=== PATIENT | female | born 1995 | race Two or more races ===

== ENCOUNTER 2018-05-21 09:17 | Outpatient (CLI) | payer MEDICAID ==
--- NOTE | 2018-05-25 10:06 | Ultrasound Report ---
Reason: TEST POSITIVE Procedure Date: 05/21/2018 Accession Number: [id number] / [id number] Procedure: US - OB 14+ Weeks CPT Code: FULL RESULT: EXAM: LIMITED OBSTETRICAL ULTRASOUND EARLY SECOND TRIMESTER EXAM DATE: 05/21/2018 11:00 AM. CLINICAL HISTORY: test positive. COMPARISON: None. TECHNIQUE: Real-time sonographic evaluation of the fetus performed by the billing clerk. Multiple claims representative static images were saved for review. DATING: EGA 16 weeks 1 day with CLAUDETTE 11/04/2018 based on LMP of 01/28/2018. EGA 16 weeks 4 days with CLAUDETTE 11/01/2018 based on the current ultrasound. GENERAL EVALUATION Luz . Cardiac activity: 161 bpm. movement: Visualized. Presentation: Cephalic. Placenta: Posterior position. No evidence for previa. Amniotic fluid: DARLINE 9.0. MVP 3.0 cm. BIOMETRY Bi-Parietal Diameter (BPD): 3.5 cm, 16 weeks 5 days Head Circumference (HC): 13.2 cm, 16 weeks 5 days Abdominal Circumference (AC): 11.0 cm, 16 weeks 6 days Femur Length (FL): 2.1 cm, 16 weeks 2 days Estimated Weight: 165 g, 79th percentile for 16 weeks 1 days. ANATOMY Not evaluated. MATERNAL STRUCTURES Uterus: Unremarkable. Cervix: Long and closed. Right ovary/adnexa: Unremarkable. Left ovary/adnexa: Unremarkable. Free fluid: None. IMPRESSION: 1. Luz live intrauterine with gestational age 16 weeks 1 day based on LMP 2. size is within expected limits for assigned dating. RADIA
== END 2018-05-21 09:18 | disposition home or self-care (01) ==
LOC: DI 09:17
PROVIDERS: ATTEND Registered Nurse
DX: Z34.90 Encounter for supervision of normal pregnancy, unspecified, unspecified trimester (principal)
CPT/HCPCS: 76805

== ENCOUNTER 2018-06-01 14:34 | Outpatient (CLI) | payer MEDICAID ==
[2018-06-01 15:05] LABS: MUDS CUTOFF CONCENTRATIONS CUTOFF CONC BELOW:
[2018-06-01 15:32] LABS: AMPHETAMINE SCREEN,URINE NEGATIVE (NEGATIVE); BENZODIAZEPINES SCREEN, URINE NEGATIVE (NEGATIVE); COCAINE SCREEN URINE NEGATIVE (NEGATIVE); METHADONE SCREEN, URINE NEGATIVE (NEGATIVE); METHAMPHETAMINES SCREEN, URINE NEGATIVE (NEGATIVE); OPIATE SCREEN, URINE NEGATIVE (NEGATIVE); OXYCODONE SCREEN, URINE NEGATIVE (NEGATIVE); PROPOXYPHENE SCREEN, URINE NEGATIVE (NEGATIVE); TRICYCLIC ANTIDEPRESSANT,URINE NEGATIVE (NEGATIVE)
== END 2018-06-01 23:59 | disposition home or self-care (01) ==
LOC: LAB.R 14:34
PROVIDERS: ATTEND Obstetrics & Gynecology
DX: Z33.1 Pregnant state, incidental (principal)
CPT/HCPCS: 80306

== ENCOUNTER 2018-06-05 09:47 | Outpatient (CLI) | payer MEDICAID ==
[2018-06-05 10:28] LABS: BILIRUBIN,URINE NEGATIVE (NEGATIVE); GLUCOSE, URINE (UA) NEGATIVE (NEGATIVE); KETONES,URINE (UA) NEGATIVE (NEGATIVE); LEUKOCYTE ESTERASE, URINE MODERATE (NEGATIVE); NITRITE,URINE NEGATIVE (NEGATIVE); OCCULT BLOOD,URINE NEGATIVE (NEGATIVE); PH,URINE 6.5 PH (5.0-7.5); PROTEIN,URINE NEGATIVE (NEGATIVE); UROBILINOGEN,URINE 0.2 (NORMAL) E.U./dL (NORMAL)
[2018-06-05 10:37] LABS: BASOPHILS # (AUTO) 0.1 10^3/uL (0.0-0.1); BASOPHILS % (AUTO) 0.9 %; EOSINOPHILS # (AUTO) 0.1 10^3/uL (0.0-0.7); EOSINOPHILS % (AUTO) 1.2 %; HGB - HEMOGLOBIN 12.4 g/dL (12.0-16.0); LYMPHOCYTES # (AUTO) 2.3 10^3/uL (1.5-3.5); MEAN CORPUSCULAR HEMOGLOBIN 29.2 pg (27.0-31.0); MEAN CORPUSCULAR HGB CONC 34.8 g/dL (32.0-36.0); MEAN PLATELET VOLUME 8.1 fL (7.9-10.8); MONOCYTES # (AUTO) 0.4 10^3/uL (0.0-1.0); MONOCYTES % (AUTO) 4.7 %; NEUTROPHILS # (AUTO) 5.4 10^3/uL (1.5-6.6); NEUTROPHILS % (AUTO) 65.2 %; PLT - PLATELET COUNT 237 10^3/uL (130-450); RED BLOOD COUNT 4.24 10^6/uL (4.20-5.40); RED CELL DISTRIBUTION WIDTH 13.2 % (12.0-15.0); WHITE BLOOD COUNT 8.3 x10^3/uL (4.8-10.8)
[2018-06-05 10:43] LABS: CLARITY,URINE CLOUDY (CLEAR)
[2018-06-05 10:47] LABS: BACTERIA,URINE Few /HPF (None Seen); RBC,URINE None Seen /HPF (0-5); SQUAMOUS EPITHELIAL CELL,UR MANY Squamous (<= Few)
[2018-06-07 14:16] LABS: HEPATITIS B SURFACE ANTIGEN NON-REACTIVE (NON-REACTIVE); HEPATITIS C ANTIBODY NON-REACTIVE (NON-REACTIVE)
[2018-06-07 14:17] LABS: HIV AG/AB 4TH GEN NON-REACTIVE (NON-REACTIVE)
== END 2018-06-05 09:48 | disposition home or self-care (01) ==
LOC: LAB 09:47
PROVIDERS: ATTEND Obstetrics & Gynecology
DX: Z33.1 Pregnant state, incidental (principal)
CPT/HCPCS: 36415; 81001; 81599; 82105; 82677; 84702; 85025; 86336; 86592; 86762; 86803; 86850; 86900; 86901; 87086; 87340; 87389

== ENCOUNTER 2018-06-26 15:02 | Emergency (ER) | payer MEDICAID ==
[2018-06-26 15:49] VITALS: BP 96/71
[2018-06-26] MEDS ORDERED: ACETAMINOPHEN 500 MG TABLET PO STA (16:19)
[2018-06-26] MEDS ORDERED: LIDOCAINE VISCOUS 2% 15 ML UDC MM STA (16:43)
[2018-06-26] MEDS ORDERED: MAG HYDROX/AL HYDROX/SIMETH 30 ML UDC PO STA (16:43)
--- NOTE | 2018-06-26 16:45 | ED Physician Documentation ---
PD HPI ABD PAIN - Stated complaint Stated Complaint: 22WK PREG/SOA/SIDE PX - History obtained from History obtained from: Patient (using [employer] on call pharmacy technician tablet) - History of Present Illness Timing - onset: Today (She developed epigastric pain radiating to both flanks this morning at 7 AM. There was no injury, no nausea or vomiting or changes in bowel movements. She is never had this before. The pain has decreased her appetite. She is 22 weeks without cramping, bleeding, or fluid loss. She has had some sore throat and body aches and chills as well without measured fevers.) Review of Systems Constitutional: reports: Chills, Myalgias. denies: Fever Nose: denies: Rhinorrhea / runny nose Throat: reports: Sore throat Respiratory: denies: Dyspnea, Cough GI: reports: Abdominal Pain. denies: Nausea, Vomiting, Diarrhea : denies: Dysuria, Frequency, Hesitancy PD PAST MEDICAL HISTORY - Past Surgical History Past Surgical History: No - Present Medications Home Medications: Ambulatory Orders Medication Instructions Recorded Confirmed Famotidine [Pepcid] 20 mg PO BID #60 tablet 06/26/18 Penicillin V Potassium 500 mg PO Q6HR #40 tablet 06/26/18 - Allergies Allergies/Adverse Reactions: Allergies Allergy/AdvReac Type Severity Reaction Status Date / Time No Known Drug Allergies Allergy Verified 11/05/13 23:23 - Social History Does the pt smoke?: No Smoking Status: Never smoker - Immunizations Immunizations are current?: No Immunizations: TDAP >10years/unknown PD ED PE NORMAL - Vitals Vital signs reviewed: Yes - General General: Alert and oriented X 3, No acute distress - HEENT HEENT: PERRL, EOMI, Pharynx benign - Neck Neck: Supple, no meningeal sign, No bony TTP - Cardiac Cardiac: RRR, No murmur - Respiratory Respiratory: No respiratory distress, Clear bilaterally - Abdomen Abdomen: Normal bowel sounds, Soft, Non tender, Other (Bedside ultrasound demonstrates single live intrauterine with a heart rate 165) - Back Back: No CVA TTP, No spinal TTP - Derm Derm: Normal color, Warm and dry - Extremities Extremities: No edema, No calf tenderness / cord - Neuro Neuro: Alert and oriented X 3, Normal speech Results - Vitals Vitals: Vital Signs - 24 hr 06/26/18 15:43 Temperature 37.0 C Heart Rate 90 Respiratory 18 Rate Blood Pressure 96/71 O2 Saturation 99 Oxygen O2 Source Room air - Labs Labs: Laboratory Tests 06/26/18 06/26/18 06/26/18 16:45 16:45 16:53 WBC 11.4 H RBC 4.13 L Hgb 12.0 Hct 34.9 L MCV 84.4 MCH 29.1 MCHC 34.5 RDW 12.6 Plt Count 216 MPV 8.4 Neut # (Auto) 9.8 H Lymph # (Auto) 1.1 L Stan[place] # (Auto) 0.5 Eos # (Auto) 0.0 Baso # (Auto) 0.0 Absolute Nucleated RBC 0.00 Nucleated RBC % 0.0 Sodium Potassium Chloride Carbon Dioxide Anion Gap BUN Creatinine Estimated GFR (MDRD) Glucose Calcium Total Bilirubin AST ALT Alkaline Phosphatase Total Protein Albumin Globulin Albumin/Globulin Ratio Lipase Urine Color YELLOW Urine Clarity CLEAR Urine pH 6.0 Ur Specific [place] 1.025 Urine Protein NEGATIVE Urine Glucose (UA) NEGATIVE Urine Ketones >=80 H Urine Occult Blood SMALL H Urine Nitrite NEGATIVE Urine Bilirubin NEGATIVE Urine Urobilinogen 0.2 (NORMAL) Ur Leukocyte Esterase NEGATIVE Urine RBC 6-10 H Urine WBC 0-3 Ur Squamous Epith Cells MANY Squamous H Urine Bacteria Many H Urine Mucus Few Strands Ur Microscopic Review INDICATED Urine Culture Comments NOT INDICATED Influenza A (Rapid) Influenza B (Rapid) Group A Strep Rapid POSITIVE H 06/26/18 06/26/18 16:53 16:53 WBC RBC Hgb Hct MCV MCH MCHC RDW Plt Count MPV Neut # (Auto) Lymph # (Auto) [place] # (Auto) Eos # (Auto) Baso # (Auto) Absolute Nucleated RBC Nucleated RBC % Sodium 135 Potassium 3.2 L Chloride 104 Carbon Dioxide 22 Anion Gap 9.0 BUN 5 L Creatinine 0.4 Estimated GFR (MDRD) 201 Glucose 91 Calcium 8.8 Total Bilirubin 0.5 AST 17 ALT 12 Alkaline Phosphatase 94 Total Protein 7.0 Albumin 3.6 Globulin 3.4 Albumin/Globulin Ratio 1.1 Lipase 19 L Urine Color Urine Clarity Urine pH Ur Specific [place] Urine Protein Urine Glucose (UA) Urine Ketones Urine Occult Blood Urine Nitrite Urine Bilirubin Urine Urobilinogen Ur Leukocyte Esterase Urine RBC Urine WBC Ur Squamous Epith Cells Urine Bacteria Urine Mucus Ur Microscopic Review Urine Culture Comments Influenza A (Rapid) Negative Influenza B (Rapid) Negative Group A Strep Rapid PD MEDICAL DECISION MAKING - ED course ED course: 22-year-old woman at 22 weeks with epigastric and flank pain as well as chills and throat pain. She did have some relief with a GI cocktail suggesting an element of gastritis but is also found to have strep throat which is treated with penicillin. At subsequent encounters all questions were answered with the aid of the on call pharmacy technician tablet. Departure - Departure Disposition: 01 Home, Self Care Clinical Impression: Strep throat Gastritis Qualifiers: Gastritis type: superficial Chronicity: acute Gastritis bleeding: without bleeding Qualified Code(s): K29.00 - Acute gastritis without bleeding Instructions: ED Strep Pharyngitis Conf, ED Gastritis Follow-Up: [facility] [Provider Group] - Within 1 week Prescriptions: Penicillin V Potassium 500 mg PO Q6HR #40 tablet Famotidine [Pepcid] 20 mg PO BID #60 tablet Print Language: Guatemalan
[2018-06-26 17:05] LABS: BILIRUBIN,URINE NEGATIVE (NEGATIVE); GLUCOSE, URINE (UA) NEGATIVE (NEGATIVE); KETONES,URINE (UA) >=80 mg/dL (NEGATIVE); LEUKOCYTE ESTERASE, URINE NEGATIVE (NEGATIVE); NITRITE,URINE NEGATIVE (NEGATIVE); OCCULT BLOOD,URINE SMALL (NEGATIVE); PROTEIN,URINE NEGATIVE (NEGATIVE); UROBILINOGEN,URINE 0.2 (NORMAL) E.U./dL (NORMAL)
[2018-06-26 17:07] LABS: CLARITY,URINE CLEAR (CLEAR)
[2018-06-26 17:10] LABS: BASOPHILS % (AUTO) 0.1 %; EOSINOPHILS % (AUTO) 0.1 %; LYMPHOCYTES # (AUTO) 1.1 10^3/uL (1.5-3.5); LYMPHOCYTES % (AUTO) 9.7 %; MEAN CORPUSCULAR HEMOGLOBIN 29.1 pg (27.0-31.0); MEAN CORPUSCULAR HGB CONC 34.5 g/dL (32.0-36.0); MEAN CORPUSCULAR VOLUME 84.4 fL (81.0-99.0); MEAN PLATELET VOLUME 8.4 fL (7.9-10.8); MONOCYTES # (AUTO) 0.5 10^3/uL (0.0-1.0); MONOCYTES % (AUTO) 4.3 %; NEUTROPHILS # (AUTO) 9.8 10^3/uL (1.5-6.6); NEUTROPHILS % (AUTO) 85.8 %; PLT - PLATELET COUNT 216 10^3/uL (130-450); RED BLOOD COUNT 4.13 10^6/uL (4.20-5.40); RED CELL DISTRIBUTION WIDTH 12.6 % (12.0-15.0); WHITE BLOOD COUNT 11.4 x10^3/uL (4.8-10.8)
[2018-06-26 17:11] LABS: ALBUMIN 3.6 g/dL (3.2-5.5); ALBUMIN/GLOBULIN RATIO 1.1 (1.0-2.2); BILIRUBIN,TOTAL 0.5 mg/dL (0.2-1.0); CALCIUM 8.8 mg/dL (8.5-10.3); CREATININE 0.4 mg/dL (0.4-1.0)
[2018-06-26 17:15] LABS: BACTERIA,URINE Many /HPF (None Seen); MUCUS,URINE Few Strands; SQUAMOUS EPITHELIAL CELL,UR MANY Squamous (<= Few)
[2018-06-26] MEDS ORDERED: PENICILLIN VK 250 MG TABLET PO STA (17:21)
== END 2018-06-26 18:00 | disposition home or self-care (01) ==
LOC: ED 15:02
DX: O99.89 Other specified diseases and conditions complicating pregnancy, childbirth and the puerperium (principal); J02.0 Streptococcal pharyngitis; B95.5 Unspecified streptococcus as the cause of diseases classified elsewhere; K29.70 Gastritis, unspecified, without bleeding; Z3A.22 22 weeks gestation of pregnancy
CPT/HCPCS: 36415; 80053; 81001; 83690; 85025; 87275; 87276; 87430; 99283; A9270; 81003; 87086

== ENCOUNTER 2018-08-03 13:19 | Outpatient (CLI) | payer MEDICAID ==
--- NOTE | 2018-08-03 19:03 | Ultrasound Report ---
Reason: Procedure Date: 08/03/2018 Accession Number: [id number] / [id number] Procedure: US - OB Detailed Eval CPT Code: FULL RESULT: EXAM: COMPLETE OBSTETRICAL ULTRASOUND EXAM DATE: 08/03/2018 03:36 PM. CLINICAL HISTORY: anatomic survey. LMP 01/28/2018 COMPARISON: 05/21/2018 TECHNIQUE: Real-time sonographic evaluation of the fetus performed by the dependency director. Multiple patient admitting representative static images were saved for review. DATING: Established EGA 26 weeks 5 days with CLAUDETTE 11/04/2018 based on LMP. EGA 27 weeks 1 day with CLAUDETTE 11/01/2018 based on prior ultrasound. EGA 28 weeks 0 days with CLAUDETTE 10/26/2018 based on the current ultrasound. GENERAL EVALUATION Luz . Cardiac activity: 142 bpm. movement: Present. Presentation: Cephalic. Placenta: Posterior position. No evidence for previa. Umbilical cord: 3 vessel cord. Central placental cord origin. Amniotic fluid: Subjectively normal. MVP 4.8 cm. BIOMETRY Bi-Parietal Diameter (BPD): 7.2 cm, 28 weeks 5 days Head Circumference (HC): 26.4 cm, 28 weeks 5 days Abdominal Circumference (AC): 23.6 cm, 27 weeks 6 days Femur Length (FL): 5 cm, 26 weeks 6 days Estimated Weight: 1114 g, 77th percentile . ANATOMY The intracranial structures, profile, face/nose/lips, spine, 4 chamber heart and outflow tracts, stomach, abdominal wall and cord insertion, diaphragm, kidneys, bladder, and extremities were visualized and demonstrate no abnormality. MATERNAL STRUCTURES Uterus: Unremarkable. Cervix: Long and closed. Transabdominal length 4 cm. Right ovary/adnexa: Unremarkable. Left ovary/adnexa: Unremarkable. Free fluid: None. IMPRESSION: 1. Luz intrauterine with gestational age 26 weeks 5 days based on LMP. 2. Estimated weight is within expected limits for assigned dating. 3. Normal anatomic survey. No anatomic abnormalities are detected at this time. RADIA
== END 2018-08-03 13:20 | disposition home or self-care (01) ==
LOC: DI 13:19
PROVIDERS: ATTEND Obstetrics & Gynecology
DX: Z36.89 Encounter for other specified antenatal screening (principal)
CPT/HCPCS: 76811

== ENCOUNTER 2018-08-09 11:05 | Outpatient (CLI) | payer MEDICAID ==
[2018-08-09 13:01] LABS: HGB - HEMOGLOBIN 11.8 g/dL (12.0-16.0); MEAN CORPUSCULAR HEMOGLOBIN 27.5 pg (27.0-31.0); MEAN CORPUSCULAR HGB CONC 33.7 g/dL (32.0-36.0); MEAN CORPUSCULAR VOLUME 81.6 fL (81.0-99.0); MEAN PLATELET VOLUME 8.4 fL (7.9-10.8); RED BLOOD COUNT 4.31 10^6/uL (4.20-5.40); RED CELL DISTRIBUTION WIDTH 12.6 % (12.0-15.0); WHITE BLOOD COUNT 7.9 x10^3/uL (4.8-10.8)
== END 2018-08-09 11:06 | disposition home or self-care (01) ==
LOC: LAB 11:05
PROVIDERS: ATTEND Obstetrics & Gynecology
DX: Z34.82 Encounter for supervision of other normal pregnancy, second trimester (principal); Z36.8A Encounter for antenatal screening for other genetic defects
CPT/HCPCS: 36415; 81220; 81243; 81329; 81599; 82950; 83021; 85014; 85018; 85027; 85041; 86787; 86850

== ENCOUNTER 2018-10-01 09:22 | Outpatient (CLI) | payer MEDICAID ==
--- NOTE | 2018-10-01 14:59 | Ultrasound Report ---
Reason: SUPERVISION OF OTHER NORMAL ,SECOND TRIME Procedure Date: 10/01/2018 Accession Number: [id number] / [id number] Procedure: US - OB F/U or Repeat CPT Code: FULL RESULT: EXAM: FOLLOW-UP OBSTETRICAL ULTRASOUND EXAM DATE: 10/01/2018 10:00 AM. CLINICAL HISTORY: Supervision of otherwise normal , second trimester. Follow-up of growth. COMPARISON: OB DETAILED EVAL 08/03/2018 2:02 PM. TECHNIQUE: Real-time sonographic evaluation of the fetus performed by the steeler. Multiple patient access representative static images were saved for review. DATING: Established EGA 35 weeks 1 day with CLAUDETTE 11/04/2018 based on LMP. EGA 36 weeks 1 day with CLAUDETTE 10/28/2018 based on the current ultrasound. GENERAL EVALUATION Luz . Cardiac activity: 145 bpm. movement: Visualized. Presentation: Vertex Placenta: Posterior position. Amniotic fluid: Normal. DARLINE 14 cm. MVP 3.7 cm. BIOMETRY Bi-Parietal Diameter (BPD): 9.0 cm, 36 weeks 4 days Head Circumference (HC): 33.3 cm, 38 weeks 0 days Abdominal Circumference (AC): 32.8 cm, 36 weeks 5 days Femur Length (FL): 6.5 cm, 33 weeks 3 days Estimated Weight: 2832 g, 73rd percentile for 35 weeks 1 day. MATERNAL STRUCTURES Nonspecific finding of prominent bilateral adnexal vasculature is incidentally noted, unclear clinical significance. IMPRESSION: 1. Luz live intrauterine with gestational age 35 weeks 1 day based on LMP. 2. Estimated weight is within expected limits for assigned dating. 3. Normal interval growth compared to 08/03/2018. RADIA
== END 2018-10-01 09:23 | disposition home or self-care (01) ==
LOC: DI 09:22
PROVIDERS: ATTEND Obstetrics & Gynecology
DX: Z34.83 Encounter for supervision of other normal pregnancy, third trimester (principal)
CPT/HCPCS: 76816

== ENCOUNTER 2018-10-12 08:00 | Outpatient (CLI) | payer MEDICAID ==
[2018-10-12 22:15] LABS: TRICHOMONAS VAGINALIS DNA NEGATIVE (NEGATIVE)
== END 2018-10-12 23:59 | disposition home or self-care (01) ==
LOC: LAB.R 08:00
PROVIDERS: ATTEND Nurse Practitioner Obstetrics & Gynecology
DX: Z36.85 Encounter for antenatal screening for Streptococcus B (principal); Z11.3 Encounter for screening for infections with a predominantly sexual mode of transmission
CPT/HCPCS: 87491; 87591; 87661; 87797

== ENCOUNTER 2018-10-23 18:38 | Outpatient (CLI) | payer MEDICAID ==
[2018-10-23 19:10] VITALS: BP 116/59
--- NOTE | 2018-10-26 10:54 | PROVIDER PROGRESS NOTE ---
- HPI Chief Complaint: Labor Check Current : Current EDU 11/04/18 Gestation 38 Weeks and 2 Days 4 Para 3 Vital Signs Temperature 37.2 C 10/23/18 18:49 Heart Rate 81 10/23/18 18:49 Respiratory Rate 16 10/23/18 18:49 Blood Pressure 116/59 L 10/23/18 18:49 O2 Saturation 100 10/23/18 18:49 Temperature 37.2 C 10/23/18 18:49 Heart Rate 81 10/23/18 18:49 Respiratory Rate 16 10/23/18 18:49 Blood Pressure 116/59 L 10/23/18 18:49 O2 Saturation 100 10/23/18 18:49 - Exam SVE 2-3/50/-2, vertex, BOW intact - Procedures Service Date of procedure: 10/23/18 Findings: SVE unchanged after 2 hours. - Plan Plan: Patient released home with precautions. FINAL DIAGNOSIS: Early labor @ >37.0wks gestation
== END 2018-10-23 23:00 | disposition home or self-care (01) ==
LOC: WFO 18:38 → FBP 18:44 → WFO 23:00
PROVIDERS: ATTEND Nurse Practitioner Obstetrics & Gynecology
DX: Z34.83 Encounter for supervision of other normal pregnancy, third trimester (principal)
CPT/HCPCS: 99213

== ENCOUNTER 2018-10-24 01:16 | Inpatient (IN) | payer MEDICAID ==
[2018-10-24] MEDS ORDERED: SODIUM CHLORIDE FLUSH 0.9% 10 ML SYRINGE IVP PRN (01:30)
[2018-10-24] MEDS ORDERED: LACTATED RINGERS 1,000 ML IV SCH (01:30)
[2018-10-24] MEDS ORDERED: fentaNYL 100 MCG/2 ML VIAL IVP PRN (01:30)
[2018-10-24] MEDS ORDERED: LACTATED RINGERS 1,000 ML IV ONE (01:43)
[2018-10-24] MEDS ORDERED: OXYTOCIN/DEXTROSE 5 % 30 UNIT/500 ML BAG IV ONE (01:43)
[2018-10-24 02:03] LABS: BASOPHILS % (AUTO) 0.3 %; EOSINOPHILS # (AUTO) 0.1 10^3/uL (0.0-0.7); EOSINOPHILS % (AUTO) 0.7 %; HGB - HEMOGLOBIN 10.4 g/dL (12.0-16.0); LYMPHOCYTES # (AUTO) 2.9 10^3/uL (1.5-3.5); LYMPHOCYTES % (AUTO) 41.3 %; MEAN CORPUSCULAR HEMOGLOBIN 24.1 pg (27.0-31.0); MEAN CORPUSCULAR HGB CONC 31.3 g/dL (32.0-36.0); MEAN CORPUSCULAR VOLUME 76.9 fL (81.0-99.0); MEAN PLATELET VOLUME 11.4 fL (7.9-10.8); MONOCYTES # (AUTO) 0.6 10^3/uL (0.0-1.0); MONOCYTES % (AUTO) 8.2 %; NEUTROPHILS # (AUTO) 3.5 10^3/uL (1.5-6.6); NEUTROPHILS % (AUTO) 49.2 %; PLT - PLATELET COUNT 198 10^3/uL (130-450); RED BLOOD COUNT 4.32 10^6/uL (4.20-5.40); RED CELL DISTRIBUTION WIDTH 13.3 % (12.0-15.0)
[2018-10-24] MEDS ORDERED: HYDROCORTISONE 1% CREAM 28 GM TUBE PR PRN (02:39)
[2018-10-24] MEDS ORDERED: WITCH HAZEL/GLYCERIN 1 PAD TOP PRN (02:39)
[2018-10-24] MEDS ORDERED: OXYTOCIN/DEXTROSE 5 % 30 UNIT/500 ML BAG IV PRN (02:40)
--- NOTE | 2018-10-24 02:53 | DELIVERY NOTE ---
Delivery Note - Labor Labor: positive: Spontaneous - Delivery Method Delivery Method: positive: Spontaneous vaginal delivery - Presentation Presentation: positive: Vertex, LEONARD - left occiput anterior - Nuchal Cord Nuchal Cord: positive: None - Amniotic Fluid Description Amniotic Fluid Description: positive: Clear - Episiotomy Type Episiotomy Type: positive: None - Laceration Laceration: positive: None - Delivery Outcome Delivery Outcome: positive: Livebirth - [place]: positive: Placed in direct skin contact with mother, Stimulated, Warmed, [place] used sex: positive: Male - Cord Cord: positive: 3 vessels - Placenta Placenta: positive: Intact, Spontaneous - Estimated Blood Loss Estimated Blood Loss (in cc): 300 - Post Delivery Events Post Delivery Events: positive: No post delivery events - Delivery Comments (Free Text/Narrative) Delivery Comments (Free Text/Narrative): Labor: This 23yo @ 38.3wks gestation presented on 10/24/2018 at approximately 0130 in active labor. Cervix was 6/100/-1, vertex. FHR pattern demonstrated Category I pattern. Normal labor course. SROM occurred at 0222 and was a moderate amount of clear fluid and patient was noted to be c/c/0 with spontaneous urge to push. : Normal of viable male infant at 0227 on 10/24/2018. No nuchal cord. The was placed on maternal abdomen, stimulated, dried, and placed skin to skin. Pitocin administered via IV for hemostasis. 's were 9/9 at 1 and 5 min respectively. The umbilical cord was allowed to stop pulsating and which time it was doubly clamped by CNM and cut by FOB. Cord blood was obtained. 3VC. Placenta delivered spontaneously and intact at 0231. EBL 300mL. Uterine fundus firm and there is no excessive bleeding. The perineum, vagina, and cervix were inspected and found to be intact. Family bonding well. Both mother and baby were left in stable condition.
[2018-10-24] MEDS: IBUPROFEN 800 MG TABLET PO SCH ×4 (02:57→20:12)
[2018-10-24] MEDS: ACETAMINOPHEN 500 MG TABLET PO SCH ×3 (02:57→20:13)
--- NOTE | 2018-10-24 02:59 | HISTORY & PHYSICAL EXAMINATION ---
Admit History - Visit Reason Visit Reason: Contractions - : 4 Parity: 3 Premature: 0 Ectopic: 0 : 0 Care: positive: [facility] Risk/History: positive: None Complications This : positive: None Smoking Status: Never smoker - Mother's Labs Mother's Blood Type: positive: O Mother's RH: positive: Positive GBS: positive: Group B Step Negative Rubella Status: positive: Immune Meds/Allgy - Home Medications Home Medications: Ambulatory Orders Medication Instructions Recorded Confirmed Famotidine [Pepcid] 20 mg PO BID #60 tablet 06/26/18 Penicillin V Potassium 500 mg PO Q6HR #40 tablet 06/26/18 - Allergies Allergies/Adverse Reactions: Allergies Allergy/AdvReac Type Severity Reaction Status Date / Time No Known Drug Allergies Allergy Verified 11/05/13 23:23 Review of Systems - Constitutional Constitutional: denies: Fatigue, Fever, Chills, Malaise - Eyes Eyes: denies: Blurred vision, Spots in vision, Dipolpia - Cardiovascular Cariovascular: denies: Chest pain - Respiratory Respiratory: denies: SOB at rest - Gastrointestinal Gastrointestinal: denies: Constipation, Diarrhea, Nausea, Vomiting - Integumentary Integumentary: denies: Rash, Pruritis - Neurological Neurological: denies: Headache Physical - Abdominal Exam Contraction Frequency (min/apart): 2-4 Contraction Intensity: positive: Strong Uterine Resting Tone: positive: Soft - Monitoring Heart Rate Baseline: 140 Strip Review: positive: Category I - Presentation Presentation: positive: Vertex - Vaginal Exam Membranes: positive: Membranes intact Dilation (in cm): 6-7 Effacement (%): 100 Station: positive: -1 - Speculum Exam Speculum Exam Performed: positive: No Plan for Labor - Plan For Labor I expect patient to be DC'd or transferred within 96 hours.: Yes Plan for Labor: HPI: This 23yo @ 38.3wks gestation by LMP c/w 16wks U/S presented on 10/24/2018 in active labor. upon arrival cervix was noted to be 6/100/-1, vertex position with intact membranes. Alison has been a patient of [facility] since 13.4wks gestation when she established care for her initial visit. Her has remained uncomplicated. She was admitted for expectant management. Dating criteria: LMP 01/28/2019 Initial ultrasound @ 16.4wks gestation - agrees Serial Exams - agree OB Hx: G1: 01/09/2012 , epidural, male, Javier G2: 10/06/2013 , epidural, male, Marta G3: 01/18/2016 , unmedicated, female, Eve G4: current Medications: PNV Allergies: NKDA PMHx: no significant Surgical Hx: none Social hx: Never smoker. No ETOH or IVDA. Neg STI hx. Neg hx of exposure to HSV. Pt is a stay at home mom and she and her live in [place] with their 3 children. Genetic Hx: none in patient or Ultrasounds: Initial ultrasound at 16.4wks gestation c/w LMP dating 08/03/2018 FAS WNL. Posterior placenta, no previa. DARLINE WNL. 3VC. Size c/w dating. 10/01/2018 Growth and DARLINE WNL Immunizations: Tdap 08/26/2018 labs: Hgb 12.4 Hct 35.6 PLT 237 Blood type O positive Antibody neg Rubella - immune RPR non-reactive Hep B neg GC/CT neg HIV neg Pap 06/01/2018 normal Varicella - immune UTOX neg Genetic screening - normal quad screen Carrier screening - CF negative, WNL hemoglobinopathy, SMA, and fragile X 28wk labs: 1 hour GTT 118 Hgb 11.8; Hct 35; PLT 245 Antibody neg GBS negative GC/CT neg Physical Exam: Normocephalic, atraumatic Heart RRR w/o M/G/R Lungs CTAB Abdomen gravid, soft and nontender EFW 3100g SVE 6/100/-1, vertex Intact membranes Bilateral LE's trace edema Assessment: 23yo @ 38.4wks gestation by LMP c/w 16wk U/S Active labor GBS neg Plan: Admit for expectant management Continuous monitoring Anticipate spontaneous vagina delivery
[2018-10-25] MEDS: IBUPROFEN 800 MG TABLET PO SCH ×3 (03:01→16:09)
[2018-10-25] MEDS: ACETAMINOPHEN 500 MG TABLET PO SCH ×3 (04:00→19:47)
--- NOTE | 2018-10-25 11:45 | PROVIDER PROGRESS NOTE ---
Subjective - Subjective Subjective: S: Bonding well with baby. without difficulty. Bleeding decreased and is light. She reports moderate pain/cramping that is constant but feels consistent with the pain associated with . She does feel that the oral pain medication helps slightly. She denies pain in her perineum and states the pain is mostly in her hips bilaterally. She is hoping to be able to stay another night. and children supportive at the bedside. O: BP 108/48, T 36.8, RR 16, HR 52 Heart RRR w/o M/G/R, lungs CTAB, abdomen soft and nontender with fundus firm at U-1. Bilateral LE's no edema. Mood is good. A: 23yo -->P4 PPD#1 s/p TSVD of viable male Perineum intact P: Continue routine pp care and medications. Encourage pain medication when offered - pt verbalized understanding and agrees. Evaluate for discharge home tomorrow. Objective - Vital Signs/Intake & Output Vital Signs: Vital Signs x48h Temp Pulse Resp BP Pulse Ox 10/25/18 08:03 36.8 C 52 L 16 108/48 L 100 10/25/18 04:22 36.6 C 55 L 17 92/46 L 100 Intake & Output: Intake & Output 10/22/18 10/23/18 10/24/18 10/25/18 23:59 23:59 23:59 23:59 Intake Total 1000 720 Output Total 900 Balance 100 720 - Lab Results Fish Bones: 10/24/18 01:56
[2018-10-26] MEDS: IBUPROFEN 800 MG TABLET PO SCH ×2 (00:38→10:48)
[2018-10-26] MEDS: ACETAMINOPHEN 500 MG TABLET PO SCH ×2 (04:22→10:48)
--- NOTE | 2018-10-26 07:02 | Discharge Plan ---
Discharge Plan Problem Reviewed?: Yes Disposition: Home, Self Care Condition: Good Diet: Regular Activity Restrictions: No Restrictions Shower Restrictions: No Driving Restrictions: No Weight Bearing: Full Weight No Smoking: If you smoke, Please STOP! Call for help. Follow-up with: Gina Deng CNM, ARNP [Provider Admit Priv/Credential] -
--- NOTE | 2018-10-26 07:04 | PROVIDER PROGRESS NOTE ---
Subjective - Subjective Subjective: FINAL PROGRESS NOTE: S: Bonding well with baby. without difficulty. Pain well controlled with ibuprofen and tylenol. She states the pain is much less today than it was tomorrow. Bleeding decreased and is light. She states she feels ready to go home today. O: BP 102/49, HR 51, RR 16, T 36.6 Heart RRR w/o M/G/R, lungs CTAB, abdomen soft and nontender with fundus firm at U-2, perineum intact, bilateral LE's no edema, mood is good. A: 23yo -->P3 PPD#2 s/p TSVD of viable male breastfeeeding P: Discharge home today on PPD#2 self care and warning s/sx reviewed. Advised continued use of PNV while Advised OTC ibuprofen and tylenol PRN pain F/u in 3 weeks for routine pp visit or sooner PRN. Pt verbalized understanding and agrees to above plan. She denies further questions or concerns at this time. Objective - Vital Signs/Intake & Output Vital Signs: Vital Signs x48h Temp Pulse Resp BP Pulse Ox 10/26/18 04:17 36.6 C 51 L 16 102/49 L 100 Intake & Output: Intake & Output 10/23/18 10/24/18 10/25/18 10/26/18 23:59 23:59 23:59 23:59 Intake Total 1000 1440 Output Total 900 Balance 100 1440 - Lab Results Fish Bones: 10/24/18 01:56
--- NOTE | 2018-10-26 07:30 | DISCHARGE SUMMARY ---
Physician: RAKESH Cade DATE OF ADMISSION: 10/24/2018 DATE OF DISCHARGE: 10/26/2018 DIAGNOSES ON ADMISSION 1. A 23-year-old, G3, P2-0-0-2, at 38.3 weeks' gestation. 2. Active labor. 3. Group B streptococcus negative. DIAGNOSES ON DISCHARGE 1. A 23-year-old, G3, P3-0-0-3, status post spontaneous vaginal delivery on 10/24/2018. 2. . 3. Normal recovery. BRIEF HISTORY: She is a patient of [facility] who presented on 10/24/2018, with complaints of contractions. Cervix was 6 cm dilated, 100% effaced, -1 station, in a vertex position. Spontaneous rupture of membranes occurred at 0222 on 10/24/2018, and there was noted to be a moderate amount of clear fluid. Patient progressed to spontaneously deliver a viable male at 0227 on 10/24/2018. Apgars were 9 and 9 at one and five minutes, respectively. EBL 300 mL. Perineum, vagina, and cervix were inspected and found to be intact. She has been doing well in her course. She is ambulating without difficulty and tolerating a regular diet. She is urinating without difficulty, and her lochia is normal. Her pain is well controlled with oral medications. She will be discharged home today on day #2, with instructions to continue her vitamin while . In addition, she has been given instructions to continue her ibuprofen and Tylenol [id number] as needed for pain management. She intends to follow up with myself at [facility] in 3 weeks for a routine visit, or sooner if needed. She has been given precautions to call if she has any worsening fevers, chills, abdominal pain, increased vaginal bleeding, foul-smelling vaginal lochia, or fever. TD: 10/26/2018 07:09 ISIDORO
[2018-10-26 09:09] VITALS: BP 98/59
--- NOTE | 2018-10-26 11:28 | Labor Flowsheet ---
Labor Flowsheet Datetime Report Generated by CPN: 10/26/2018 11:28 Datetime: 10/24/2018 04:46 PAIN Pain Scale: 10 Pain Presence: Intermittent Pain Type: Contraction Pain Location: Abdomen Pain Relief Measures: Comfort Measures Pain Coping: Requesting Pain Medication or Epidural
== END 2018-10-26 11:00 | disposition home or self-care (01) | DRG 807 ==
LOC: WFO 01:16 → FBP 01:21 → WFO 01:29 → FBP 01:30
PROVIDERS: ADMIT Nurse Practitioner Obstetrics & Gynecology; ATTEND Nurse Practitioner Obstetrics & Gynecology
PROC: 10E0XZZ Delivery of Products of Conception, External Approach (ICD-10-PCS; principal; 2018-10-24)
DX: O80 Encounter for full-term uncomplicated delivery (principal); Z37.0 Single live birth; Z3A.38 38 weeks gestation of pregnancy
CPT/HCPCS: 36415; 85025; 99213; A9270; J7120

== ENCOUNTER 2018-11-22 21:35 | Emergency (ER) | payer MEDICAID ==
--- NOTE | 2018-11-22 23:49 | ED Physician Documentation ---
PD HPI HEENT - Stated complaint Stated Complaint: EYE PX/MOUTH PX/EAR PX - Chief complaint Chief Complaint: Heent - History obtained from History obtained from: Patient, Other (translation tablet) - History of Present Illness Timing - onset: How many days ago (3) Timing - duration: Days (3) Timing - details: Gradual onset, Still present Location: Right ear, Throat (she has had some pain at right ear and right throat and has noted progressive weakness of right side of face. Hard to close eye fully. No rash. No fevers.), Other (facial weakness) Worsens: Swalllowing Associated symptoms: Other (ear pain and sore throat.). No: Fever, Swollen nodes, Facial swelling, Cough Similar symptoms before: Has not had sx before Review of Systems Constitutional: denies: Fever, Chills, Myalgias Ears: reports: Ear pain (right). denies: Loss of hearing, Drainage/discharge Nose: denies: Rhinorrhea / runny nose, Congestion Throat: reports: Sore throat Respiratory: denies: Cough GI: denies: Nausea, Vomiting, Diarrhea Skin: denies: Rash Neurologic: reports: Focal weakness (right facial muscles including forehead, with mild to moderate weakness.) PD PAST MEDICAL HISTORY - Past Medical History Past Medical History: No - Past Surgical History Past Surgical History: No - Present Medications Home Medications: Ambulatory Orders Medication Instructions Recorded Confirmed Famotidine [Pepcid] 20 mg PO BID #60 tablet 06/26/18 Penicillin V Potassium 500 mg PO Q6HR #40 tablet 06/26/18 Cephalexin [Keflex] 500 mg PO TID #21 capsule 11/23/18 Naproxen 375 mg PO BID #15 tablet 11/23/18 dexAMETHasone [Decadron] 4 mg PO DAILY #5 tablet 11/23/18 - Allergies Allergies/Adverse Reactions: Allergies Allergy/AdvReac Type Severity Reaction Status Date / Time No Known Drug Allergies Allergy Verified 11/22/18 21:47 - Social History Does the pt smoke?: No Smoking Status: Never smoker - Immunizations Immunizations are current?: No Immunizations: TDAP >10years/unknown PD ED PE NORMAL - Vitals Vital signs reviewed: Yes - General General: Alert and oriented X 3, No acute distress, Well developed/nourished - HEENT HEENT: No: Ears normal (left is normal. Right with redness and fluid at TM. Canal appears okay. No blisters/ rash), Pharynx benign (right tonsillar area without swelling but has redness. No exudate. ) - Neck Neck: Supple, no meningeal sign, No adenopathy - Cardiac Cardiac: RRR, No murmur - Respiratory Respiratory: Clear bilaterally - Derm Derm: Normal color - Neuro Neuro: No sensory deficit. 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 No blisters, does not seem herpetic/shingles. 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 Otitis media Qualifiers: Otitis media type: suppurative Chronicity: acute Laterality: right Recurrence: non-recurrent Spontaneous tympanic membrane rupture: without spontaneous rupture Qualified Code(s): H66.001 - Acute suppurative otitis media without spontaneous rupture of ear drum, right ear Condition: Stable Record reviewed to determine appropriate education?: Yes Instructions: ED [place] Palsy, ED Otitis Media Acute Adult Prescriptions: Cephalexin [Keflex] 500 mg PO TID #21 capsule dexAMETHasone [Decadron] 4 mg PO DAILY #5 tablet Naproxen 375 mg PO BID #15 tablet Print Language: Albanian Comments: The weakness on the side of face is from some inflammation of the nerve to the face. It does look like some redness in the ear and on the throat area so I presume it is an infection causing this. Cephalexin antibiotic for a week as directed. Decadron steroid anti- inflammatory as directed. Naproxen twice daily for a week as well. Recheck if not improving over the next several days. Discharge Date/Time: 11/23/18 00:55
[2018-11-23 00:31] VITALS: BP 103/59
[2018-11-23] MEDS ORDERED: cephALEXin 250 MG CAPSULE PO STA (00:32)
[2018-11-23] MEDS ORDERED: NAPROXEN 250 MG TABLET PO STA (00:32)
[2018-11-23] MEDS ORDERED: CHERRY SYRUP 10 ML UDC PO ONE (00:32)
[2018-11-23] MEDS ORDERED: DEXAMETHASONE 10 MG/ML VIAL PO STA (00:32)
== END 2018-11-23 00:55 | disposition home or self-care (01) ==
LOC: ED 21:35
DX: G51.0 Bell's palsy (principal); H66.001 Acute suppurative otitis media without spontaneous rupture of ear drum, right ear
CPT/HCPCS: 99283; A9270

== ENCOUNTER 2019-04-01 18:11 | Emergency (ER) | payer SELFPAY ==
[2019-04-01 18:56] LABS: BASOPHILS % (AUTO) 0.5 %; EOSINOPHILS # (AUTO) 0.2 10^3/uL (0.0-0.7); EOSINOPHILS % (AUTO) 2.8 %; HGB - HEMOGLOBIN 14.2 g/dL (12.0-16.0); LYMPHOCYTES # (AUTO) 2.6 10^3/uL (1.5-3.5); LYMPHOCYTES % (AUTO) 34.1 %; MEAN CORPUSCULAR HEMOGLOBIN 28.8 pg (27.0-31.0); MEAN CORPUSCULAR VOLUME 84.8 fL (81.0-99.0); MEAN PLATELET VOLUME 9.5 fL (7.9-10.8); MONOCYTES # (AUTO) 0.5 10^3/uL (0.0-1.0); MONOCYTES % (AUTO) 6.6 %; NEUTROPHILS # (AUTO) 4.3 10^3/uL (1.5-6.6); NEUTROPHILS % (AUTO) 55.7 %; PLT - PLATELET COUNT 277 10^3/uL (130-450); RED BLOOD COUNT 4.93 10^6/uL (4.20-5.40); RED CELL DISTRIBUTION WIDTH 12.3 % (12.0-15.0); WHITE BLOOD COUNT 7.6 x10^3/uL (4.8-10.8)
[2019-04-01 19:08] LABS: ALBUMIN 4.8 g/dL (3.2-5.5); ALBUMIN/GLOBULIN RATIO 1.4 (1.0-2.2); BILIRUBIN,TOTAL 0.3 mg/dL (0.2-1.0); CALCIUM 9.5 mg/dL (8.5-10.3); CREATININE 0.5 mg/dL (0.4-1.0); TOTAL PROTEIN 8.3 g/dL (6.7-8.2)
[2019-04-01 19:10] LABS: BILIRUBIN,URINE NEGATIVE (NEGATIVE); GLUCOSE, URINE (UA) NEGATIVE (NEGATIVE); KETONES,URINE (UA) NEGATIVE (NEGATIVE); LEUKOCYTE ESTERASE, URINE SMALL (NEGATIVE); NITRITE,URINE NEGATIVE (NEGATIVE); OCCULT BLOOD,URINE TRACE-INTA (NEGATIVE); PROTEIN,URINE NEGATIVE (NEGATIVE); UROBILINOGEN,URINE 0.2 (NORMAL) E.U./dL (NORMAL)
[2019-04-01 19:13] LABS: CLARITY,URINE CLEAR (CLEAR); HCG UR QUAL NEGATIVE
[2019-04-01 19:19] LABS: BACTERIA,URINE Rare /HPF (None Seen); RBC,URINE 0-5 /HPF (0-5); SQUAMOUS EPITHELIAL CELL,UR MOD Squamous (<= Few)
[2019-04-01] MEDS ORDERED: MAG HYDROX/AL HYDROX/SIMETH 30 ML UDC PO STA (20:08)
[2019-04-01] MEDS ORDERED: SUCRALFATE 1 GM/10 ML UDC PO STA (20:08)
[2019-04-01] MEDS ORDERED: ACETAMINOPHEN 325 MG TABLET PO STA (20:08)
[2019-04-01] MEDS ORDERED: FAMOTIDINE 20 MG TABLET PO STA (20:08)
--- NOTE | 2019-04-01 20:21 | ED Physician Documentation ---
PD HPI ABD PAIN - Stated complaint Stated Complaint: AB PX - Chief complaint Chief Complaint: Abd Pain - History obtained from History obtained from: Patient, Family - History of Present Illness Timing - onset: How many months ago (2) Timing - duration: Months (2) Timing - details: Gradual onset Pain level max: 5 Pain level now: 5 Quality: Aching, Pain Improved by: Other (nothing) Worsened by: Eating Associated symptoms: Nausea. No: Fever, Vomiting, Hematemesis, Diarrhea, Constipation, Melena, Hematochezia, Hematuria Recently seen: Not recently seen - Additional information Additional information: 23-year-old female presents to the emergency department with epigastric pain. Worse after eating. Nothing makes it better. Nausea but no vomiting. No fevers. She is breast-feeding. She is not . Review of Systems Constitutional: denies: Fever, Chills GI: denies: Vomiting : denies: Dysuria, Now EGA Skin: denies: Rash Musculoskeletal: denies: Neck pain, Back pain Neurologic: denies: Headache PD PAST MEDICAL HISTORY - Past Medical History Past Medical History: No - Past Surgical History Past Surgical History: No - Present Medications Home Medications: Ambulatory Orders Medication Instructions Recorded Confirmed Famotidine [Pepcid] 20 mg PO BID #60 tablet 06/26/18 Penicillin V Potassium 500 mg PO Q6HR #40 tablet 06/26/18 Cephalexin [Keflex] 500 mg PO TID #21 capsule 11/23/18 Naproxen 375 mg PO BID #15 tablet 11/23/18 dexAMETHasone [Decadron] 4 mg PO DAILY #5 tablet 11/23/18 Esomeprazole Magnesium [Nexium] 40 mg PO DAILY #30 capsule. 04/01/19 Famotidine [Pepcid] 20 mg PO BID #60 tablet 04/01/19 Sucralfate [Carafate] 1 gm PO ACHS #60 tablet 04/01/19 - Allergies Allergies/Adverse Reactions: Allergies Allergy/AdvReac Type Severity Reaction Status Date / Time No Known Drug Allergies Allergy Verified 11/22/18 21:47 - Social History Does the pt smoke?: No Smoking Status: Never smoker Does the pt drink ETOH?: No Does the pt have substance abuse?: No - Immunizations Immunizations are current?: No Immunizations: TDAP >10years/unknown - POLST Patient has POLST: No PD ED PE NORMAL - Vitals Vital signs reviewed: Yes - General General: Alert and oriented X 3, No acute distress, Well developed/nourished - HEENT HEENT: Moist mucous membranes - Neck Neck: Supple, no meningeal sign - Cardiac Cardiac: RRR - Respiratory Respiratory: No respiratory distress, Clear bilaterally - Abdomen Abdomen: Soft, Non distended, Other (Tender palpation epigastric. No peritoneal signs. Neg [place] sign) - Back Back: No CVA TTP - Derm Derm: Warm and dry - Neuro Neuro: Alert and oriented X 3 - Psych Psych: Normal mood, Normal affect Results - Vitals Vitals: Oxygen O2 Source Room air - Labs Labs: Laboratory Tests 04/01/19 04/01/19 04/01/19 18:34 18:50 18:50 WBC 7.6 RBC 4.93 Hgb 14.2 Hct 41.8 MCV 84.8 MCH 28.8 MCHC 34.0 RDW 12.3 Plt Count 277 MPV 9.5 Neut # (Auto) 4.3 Lymph # (Auto) 2.6 [place] # (Auto) 0.5 Eos # (Auto) 0.2 Baso # (Auto) 0.0 Absolute Nucleated RBC 0.00 Nucleated RBC % 0.0 Sodium 139 Potassium 3.4 L Chloride 105 Carbon Dioxide 24 Anion Gap 10.0 BUN 12 Creatinine 0.5 Estimated GFR (MDRD) 154 Glucose 102 H Calcium 9.5 Total Bilirubin 0.3 AST 29 ALT 46 Alkaline Phosphatase 145 H Total Protein 8.3 H Albumin 4.8 Globulin 3.5 Albumin/Globulin Ratio 1.4 Lipase 30 Urine Color YELLOW Urine Clarity CLEAR Urine pH 6.0 Ur Specific [place] 1.010 Urine Protein NEGATIVE Urine Glucose (UA) NEGATIVE Urine Ketones NEGATIVE Urine Occult Blood TRACE-INTA Urine Nitrite NEGATIVE Urine Bilirubin NEGATIVE Urine Urobilinogen 0.2 (NORMAL) Ur Leukocyte Esterase SMALL H Urine RBC 0-5 Urine WBC 11-25 H Ur Squamous Epith Cells MOD Squamous H Urine Bacteria Rare Ur Microscopic Review INDICATED Urine Culture Comments NOT INDICATED Urine HCG, Qual NEGATIVE PD MEDICAL DECISION MAKING - ED course Complexity details: reviewed results, re-evaluated patient, considered differential, d/w patient, d/w family ED course: Patient appears to have gastritis. Symptoms resolved with GI cocktail. Will place on Carafate and a PPI for home. No evidence of cholecystitis, pancreatitis. No evidence of perforation. Patient counseled regarding signs and symptoms for which I believe and urgent re-evaluation would be necessary. Patient with good understanding of and agreement to plan and is comfortable going home at this time This document was made in part using voice recognition software. While efforts are made to proofread this document, sound alike and grammatical errors may occur. Departure - Departure Disposition: Home, Self Care Clinical Impression: Abdominal pain Qualifiers: Abdominal location: unspecified location Qualified Code(s): R10.9 - Unspecified abdominal pain Gastritis Qualifiers: Gastritis type: unspecified gastritis Chronicity: acute Gastritis bleeding: without bleeding Qualified Code(s): K29.00 - Acute gastritis without bleeding Condition: Good Instructions: ED PUD Vs Gastritis Follow-Up: your,doctor in 1 week [Other] Prescriptions: Esomeprazole Magnesium [Nexium] 40 mg PO DAILY #30 capsule. Famotidine [Pepcid] 20 mg PO BID #60 tablet Sucralfate [Carafate] 1 gm PO ACHS #60 tablet Comments: Return if you worsen. Use the medications as prescribed. Discharge Date/Time: 04/01/19 21:10
[2019-04-01 21:40] VITALS: BP 117/62
== END 2019-04-01 21:10 | disposition home or self-care (01) ==
LOC: ED 18:11
DX: K29.00 Acute gastritis without bleeding (principal)
CPT/HCPCS: 36415; 80053; 81001; 81025; 83690; 85025; 99283; 99284; A9270; 81003; 87086

== ENCOUNTER 2022-12-10 12:34 | Outpatient (CLI) | payer SELFPAY ==
--- NOTE | 2022-12-11 12:35 | Ultrasound Report ---
LIMITED ULTRASOUND OF LEFT BREAST: 12/10/2022 CLINICAL: Left breast swelling. No prior exams were available for comparison. Real-time ultrasound of the left breast four quadrants was performed. Swain scale images of the real -time examination were reviewed. No significant abnormalities were seen sonographically in the left breast. IMPRESSION: NEGATIVE There is no sonographic evidence of malignancy. There is no abnormality seen in the left breast to correspond with the area of clinical concern descr ibed as diffuse pain, however, recommend clinical follow up for persistent or worsening symptoms, or development of any clinically suspicious findings. Findings and recommendations were conveyed to the patient during today's evaluation. This exam was interpreted at Station ID: [id number]. Electronically Signed By: Chalino Mims M.D. aty/:12/10/2022 13:13:17 Ultrasound BI-RADS: 1 Negative BI-RADS CATEGORY: (1) - 1 RECOMMENDATION: (ADDMAM) - Recommend additional mammographic views. recall n/a LATERALITY: (B)
== END 2022-12-10 12:35 | disposition home or self-care (01) ==
LOC: DI 12:34
PROVIDERS: ATTEND Nurse Practitioner
DX: N63.20 Unspecified lump in the left breast, unspecified quadrant (principal)

== ENCOUNTER 2023-06-06 01:44 | Emergency (ER) | payer SELFPAY ==
[2023-06-06 02:13] LABS: BASOPHILS # (AUTO) 0.1 10^3/uL (0.0-0.1); BASOPHILS % (AUTO) 0.5 %; EOSINOPHILS # (AUTO) 0.2 10^3/uL (0.0-0.7); EOSINOPHILS % (AUTO) 1.7 %; HCT - HEMATOCRIT 40.5 % (37.0-47.0); HGB - HEMOGLOBIN 13.8 g/dL (12.0-16.0); LYMPHOCYTES # (AUTO) 5.1 10^3/uL (1.5-3.5); LYMPHOCYTES % (AUTO) 43.2 %; MEAN CORPUSCULAR HEMOGLOBIN 27.9 pg (27.0-31.0); MEAN CORPUSCULAR HGB CONC 34.1 g/dL (32.0-36.0); MEAN CORPUSCULAR VOLUME 81.8 fL (81.0-99.0); MEAN PLATELET VOLUME 9.7 fL (7.9-10.8); MONOCYTES # (AUTO) 0.7 10^3/uL (0.0-1.0); MONOCYTES % (AUTO) 5.7 %; NEUTROPHILS # (AUTO) 5.7 10^3/uL (1.5-6.6); NEUTROPHILS % (AUTO) 48.6 %; PLT - PLATELET COUNT 322 10^3/uL (130-450); RED BLOOD COUNT 4.95 10^6/uL (4.20-5.40); RED CELL DISTRIBUTION WIDTH 12.8 % (12.0-15.0); WHITE BLOOD COUNT 11.7 x10^3/uL (4.8-10.8)
[2023-06-06 02:24] LABS: SLIDE REVIEW? Indicated
[2023-06-06 02:29] LABS: ALBUMIN 4.2 g/dL (3.2-5.5); ALBUMIN/GLOBULIN RATIO 1.3 (1.0-2.2); BILIRUBIN,TOTAL 0.3 mg/dL (0.2-1.0); CALCIUM 9.5 mg/dL (8.5-10.3); CREATININE 0.4 mg/dL (0.6-1.3); POTASSIUM 3.4 mmol/L (3.5-4.5); TOTAL PROTEIN 7.5 g/dL (6.4-8.9)
[2023-06-06] MEDS: ONDANSETRON 4 MG/2 ML VIAL IVP STA (02:30)
[2023-06-06] MEDS: SODIUM CHLORIDE 0.9% 1,000 ML IV STA (02:30)
[2023-06-06] MEDS: KETOROLAC 30 MG/ML VIAL IVP STA (02:30)
--- NOTE | 2023-06-06 02:38 | ED Physician Documentation ---
PD HPI ABD PAIN - Stated complaint Stated Complaint: ABDOMINAL PX - Chief complaint Chief Complaint: Abd Pain - History obtained from History obtained from: Patient - Additional information Additional information: Patient is a 27-year-old female with no significant past medical history presenting for evaluation of lower abdominal pain that has been intermittent for the past 1 week but worsening today. She has had 3 episodes of diarrhea that has been nonbloody. She has associated nausea but no vomiting. Pain also in the lower back. Nothing makes the pain better or worse. No dysuria. No hemat uria. No fevers. Denies abdominal surgeries. Review of Systems Constitutional: denies: Fever Cardiac: denies: Chest pain / pressure Respiratory: denies: Dyspnea GI: reports: Abdominal Pain, Nausea, Diarrhea. denies: Bloody / black stool : denies: Dysuria, Hematuria PD PAST MEDICAL HISTORY - Past Medical History Past Medical History: No - Past Surgical History Past Surgical History: No - Present Medications Home Medications: Ambulatory Orders Medication Instructions Recorded Confirmed Ondansetron Odt [Zofran] 4 mg TL Q6H PRN #10 tablet 06/06/23 - Allergies Allergies/Adverse Reactions: Allergies Allergy/AdvReac Type Severity Reaction Status Date / Time No Known Drug Allergies Allergy Verified 06/06/23 01:55 - Social History Does the pt smoke?: No Smoking Status: Never smoker Does the pt drink ETOH?: No Does the pt have substance abuse?: No - Immunizations Immunizations are current?: No Immunizations: TDAP >10years/unknown - POLST Patient has POLST: No PD ED PE NORMAL - General General: Alert and oriented X 3, No acute distress, Well developed/nourished - HEENT HEENT: Atraumatic, Moist mucous membranes, Pharynx benign - Neck Neck: Supple, no meningeal sign - Cardiac Cardiac: RRR, Strong equal pulses - Respiratory Respiratory: No respiratory distress, Clear bilaterally - Abdomen Abdomen: Normal bowel sounds, Soft, Non distended, Other (Lower abdominal tenderness, right greater than left) Results - Vitals Vitals: Vital Signs - 24 hr 06/06/23 06/06/23 06/06/23 01:50 02:49 03:49 Temperature 36.5 C Heart Rate 70 73 74 Respiratory 16 18 16 Rate Blood Pressure 128/66 123/73 118/66 O2 Saturation 100 98 98 Oxygen O2 Source Room air - Labs Labs: Laboratory Tests 06/06/23 06/06/23 06/06/23 02:05 02:05 02:58 WBC 11.7 H RBC 4.95 Hgb 13.8 Hct 40.5 MCV 81.8 MCH 27.9 MCHC 34.1 RDW 12.8 Plt Count 322 MPV 9.7 Neut # (Auto) 5.7 Lymph # (Auto) 5.1 H [place] # (Auto) 0.7 Eos # (Auto) 0.2 Baso # (Auto) 0.1 Absolute Nucleated RBC 0.00 Nucleated RBC % 0.0 Manual Slide Review Indicated Platelet Estimate NORMAL (130-450,000) Platelet Morphology NORMAL APPEARANCE Sodium 138 Potassium 3.4 L Chloride 104 Carbon Dioxide 26 Anion Gap 8.0 BUN 4 L Creatinine 0.4 L Estimated GFR (MDRD) 193 Glucose 97 Calcium 9.5 Total Bilirubin 0.3 AST 12 ALT 11 Alkaline Phosphatase 108 Total Protein 7.5 Albumin 4.2 Globulin 3.3 Albumin/Globulin Ratio 1.3 Lipase 10 L Urine Color YELLOW Urine Clarity CLEAR Urine pH 7.0 Ur Specific [place] 1.010 Urine Protein NEGATIVE Urine Glucose (UA) NEGATIVE Urine Ketones NEGATIVE Urine Occult Blood TRACE-INTA Urine Nitrite NEGATIVE Urine Bilirubin NEGATIVE Urine Urobilinogen 0.2 (NORMAL) Ur Leukocyte Esterase SMALL H Urine RBC 0-5 Urine WBC 6-10 H Ur Squamous Epith Cells MOD Squamous H Urine Bacteria Rare Ur Microscopic Review INDICATED Urine Culture Comments NOT INDICATED Urine HCG, Qual NEGATIVE PD Medical Decision Making - ED course Complexity details: reviewed results, re-evaluated patient, d/w patient, d/w family ED course: Patient is a 27-year-old female presenting for evaluation of lower abdominal pain for the past 1 week that has been intermittent. Vital signs are stable. Mild tenderness noted on exam. Reports having 3 episodes of diarrhea with no blood. No diarrhea here. CBC and chemistries were reviewed without significant findings. CT scan was obtained and reviewed with normal-appearing appendix. I have some mild colitis. She is feeling better here after IV fluids, Zofran and Toradol. Discussed importance of continued hydration. Will also prescribe Zofran. Again she was unable to give a stool sample here and counseled on need for close follow-up if diarrhea should continue. Patient also advised on concerning symptoms to return for. Repeat abdominal exam is benign. Departure - Departure Disposition: 01 Home, Self Care Clinical Impression: Lower abdominal pain Condition: Stable Instructions: ED Abdominal Pain Female Non-Specific Abdominal Pain Prescriptions: Ondansetron Odt [Zofran] 4 mg TL Q6H PRN #10 tablet PRN Reason: Nausea / Vomiting Print Language: Urdu Comments: Your testing today does not show any significant abnormalities. No signs of infection needing antibiotics or any surgeries. I have sent a prescription for an antinausea medication to [facility] in [place]. If you continue to have any diarrhea that I would recommend close follow-up with your primary care provider for stool testing. Otherwise I would recommend a bland diet and advancing as tolerated. Return to the ER with any worsening symptoms. Forms: PCP List Discharge Date/Time: 06/06/23 03:55
[2023-06-06] MEDS ORDERED: IOVERSOL 320 100 ML VIAL IVP ONE (02:45)
[2023-06-06 02:56] VITALS: O2SAT 98
[2023-06-06 03:05] LABS: BILIRUBIN,URINE NEGATIVE (NEGATIVE); GLUCOSE, URINE (UA) NEGATIVE (NEGATIVE); KETONES,URINE (UA) NEGATIVE (NEGATIVE); LEUKOCYTE ESTERASE, URINE SMALL (NEGATIVE); NITRITE,URINE NEGATIVE (NEGATIVE); OCCULT BLOOD,URINE TRACE-INTA (NEGATIVE); PROTEIN,URINE NEGATIVE (NEGATIVE); UROBILINOGEN,URINE 0.2 (NORMAL) E.U./dL (NORMAL)
[2023-06-06 03:07] LABS: CLARITY,URINE CLEAR (CLEAR); HCG UR QUAL NEGATIVE
[2023-06-06 03:09] LABS: PLATELET MORPHOLOGY NORMAL APPEARANCE (NORMAL)
[2023-06-06 03:10] LABS: PLATELET ESTIMATE, MANUAL NORMAL (130-450,000) (NORMAL)
[2023-06-06] MEDS: IOVERSOL 320 100 ML VIAL IVP ONE (03:12)
[2023-06-06 03:15] LABS: RBC,URINE 0-5 /HPF (0-5)
[2023-06-06 03:16] LABS: BACTERIA,URINE Rare /HPF (None Seen); SQUAMOUS EPITHELIAL CELL,UR MOD Squamous (<= Few)
[2023-06-06 03:55] VITALS: BP 118/66
--- NOTE | 2023-06-06 09:10 | CT Report ---
PROCEDURE: Abdomen/Pelvis W INDICATIONS: RLQ pain CONTRAST: 100 OPTI 320 TECHNIQUE: After the administration of intravenous contrast, a CT scan of the abdomen and pelvis was performed. Images were recorded and evaluated at appropriate window settings. Reformats: coronal and sagittal. F or radiation dose reduction, the following was used: automated exposure control, adjustment of mA and /or kV according to patient size. COMPARISON: None. FINDINGS: Image quality: Diagnostic. Patient motion artifact. Lower chest: Mild bibasilar atelectasis. Liver: No solid mass. Gallbladder and biliary tree: No radiopaque stones or wall thickening. No biliary dilation. Spleen: No splenomegaly. Pancreas: No pancreatic ductal dilation. Adrenals: No adrenal nodule. Kidneys and ureters: No hydronephrosis. No renal cystic lesion which requires follow up. No solid mas s. Stomach, bowel and peritoneum: No bowel distension. No pathologic free fluid. Mild inflammatory bose es in the left hemicolon. Colonic diverticulosis without acute diverticulitis. Appendix not definitiv nita seen but no secondary findings for acute appendicitis. Several scattered mesenteric lymph nodes m ore notable for number rather than size and likely reactive in etiology. Minimal mesenteric root stra nding. This may be in part be accentuated by motion artifact. Lymph nodes: No central or retroperitoneal adenopathy. Vessels: No infrarenal aortic aneurysm. PELVIS Reproductive organs: Unremarkable. Bladder: No abnormal wall thickening, accounting for underdistention. Pelvic lymph nodes: No pelvic adenopathy by size criteria. Bones: No aggressive osseous abnormality. Other: No significant ventral or inguinal hernia. IMPRESSION: Findings consistent with colitis of the left hemicolon. Colonic diverticulosis without evidence for a cute diverticulitis. Study limited by patient motion artifact. No significant discrepancy with initial interpretation by overnight radiologist. Reviewed by: Chalino Mims MD on 06/06/2023 9:09 AM [facility] Approved by: Chalino Mims MD on 06/06/2023 9:09 AM [facility] Station ID: [id number]
== END 2023-06-06 03:55 | disposition home or self-care (01) ==
LOC: ED 01:44
DX: R10.30 Lower abdominal pain, unspecified (principal)
CPT/HCPCS: 36415; 74177; 80053; 81001; 81025; 83690; 85025; 96374; 99284; Q9967; 81003; 87086